=== PATIENT | male | born 1945 | race Caucasian/White ===

== ENCOUNTER → 2022-01-14 07:43 | Outpatient (CLI) | payer MEDICARE, SELFPAY ==
--- NOTE | ~2022-01-14 | XR_ITS ---
XR lumbar spine 2-3V 01/14/2022 08:08 Indication: Low back pain with Procedure: 3 views lumbar spine Comparison: No prior studies for comparison Findings: Normal lumbar lordosis. There is disc narrowing at L3-4. There is disc narrowing at L5-S1. There is mild lower lumbar facet hypertrophy. No acute fracture or traumatic malalignment. No evidenc e for spondylolisthesis. There is mild dextrocurvature of the lumbar spine. Pedicles intact. Sacral f oramen are symmetric. There is atherosclerosis of the aorta and splenic artery. Impression: 1: Moderate lumbar spondylosis. Reviewed, dictated and finalized at location D. Impression: 1: Moderate lumbar spondylosis.
== END ==
PROVIDERS: PCP Emergency Medicine; Visit Provider Emergency Medicine
DX: M47.896 Other spondylosis, lumbar region (principal)
CPT/HCPCS: 72100

== ENCOUNTER 2022-02-16 12:33 | Outpatient (RCR) | payer MEDICARE, SELFPAY ==
--- NOTE | 2022-02-16 13:25 | PTOPEVAL ---
PHYSICAL THERAPY EVALUATION AND PLAN OF CARE Thank you for referring Ck Mccurdy to [facility].? The patient is scheduled to be seen for therapy? 2x/week for 3 weeks. Please review, sign, date and return this plan of care YAMILA. I agree with and certify that the following plan of care is medically necessary. Referring Physician Date Attending Provider: Sebastian Lim MD Diagnosis bilateral low back pain Subjective Information Ck is here today with Query Text:As Reported By Patient/ chronic low back pain. Family Intermittent pain. States that he can feel the pain on both sides. Will take tylenol and it helps. When it hurts he goes to sit and rest. Lowest Pain Intensity 0 Greatest Pain Intensity 5 Pain Aggravating Factors Walking,Weight Bearing/ Standing Pain Behaviors None Pain Score Pain Score 0: Self Report Interventions Used Interventions Used By Clinicians Education,Exercise,Joint Mobilization Pain Relief Interventions Used By Inactivity/Rest,Medication Patient Cervical and Lumbar ROM Lumbar ROM Lumbar Flexion Active [place] Query Text:Hands to: Lumbar Comments hinging at L1 Lower Extremity Range of Motion General Lower Extremity Range of Motion Gross Lower Extremity Range of Motion right hip internal rotation: Comments 10deg left hip internal rotation: 25deg Lower Extremity Muscle Strength Testing General Lower Extremity Strength Gross Lower Extremity Strength grossly 5/5 throughout extension hip flexion 4/5 Muscle Length Testing Muscle Length Testing Spencer Test Shortened Muscles Short (R) Iliopsoas,Short (R) Rectus Femoris Piriformis w/Hip Flexion >90 Degrees (R) Moderate Tightness,(L) Severe Tightness Left Hamstring Length -25 Query Text:(90 - 90 Position) Right Hamstring Length -35 Query Text:(90 - 90 Position) Palpation significant muscle tension and spasm to bilateral parapsinals and QL; severe hypomobility of lumbar spine PT Clinical Summary Ck is a 76 yo male presenting to outpatient physical therapy with worsening low back pain. He presents today with significant lumbar mobility deficit and significant
--- NOTE | 2022-03-07 11:39 | PCPTNOTE ---
PHYSICAL THERAPY DISCHARGE NOTE Attending Provider: Sebastian Lim MD Patient:Ck Mccurdy Date of :1945 Ck participated in physical therapy evaluation on 02/16/22 and was scheduled for follow up visits. He then proceeded to cancel all of his visits except for the last visit. On 02/22/22, he called and cancelled his remaining appointment. He will be discharged at this time. Patient?s initial visit was on 02/16/2022 and was his only visit. Thank you for referring this patient to [facility]. Please review, sign, date and return this discharge summary YAMILA. I have been updated about the patient's current status and I agree with discharge from the above service at this time. Referring Physician Date
== END 2022-03-07 16:18 | disposition home or self-care (01) ==
LOC: ANHPT 12:33
PROVIDERS: PCP Emergency Medicine; Visit Provider Emergency Medicine
DX: M47.816 Spondylosis without myelopathy or radiculopathy, lumbar region (principal)
CPT/HCPCS: 97110; 97161